=== PATIENT | female | born 1990 | race American Indian/Alaskan Native ===

== ENCOUNTER 2017-12-05 23:55 | Emergency (ER) | payer SELFPAY ==
[2017-12-06 01:22] LABS: Bilirubin,Urine NEG (Negative); Blood,Urine NEG (Negative); Color,Urine Straw (Yellow); Protein,Urine <15 mg/dL mg/dL (Negative); Urobilinogen,Urine < 2.0 mg/dL (<2.0)
[2017-12-06 01:29] LABS: HCG Qualitative,Urine Negative (Negative)
[2017-12-06 02:12] VITALS: BP 110/72
--- NOTE | 2017-12-06 02:26 | XRay Report ---
FINAL REPORT PROCEDURE: XR SPINE LUMBOSACRAL 2-3V TECHNIQUE: Lumbar spine radiographs, including AP, lateral, and lumbosacral spot views. CPT 76325 HISTORY: Lower back pain COMPARISON: No prior studies are available for comparison. FINDINGS: Alignment: Normal. Vertebral body heights/Disk spaces: Normal. Fracture(s): None. Facets: Normal. Bone mineralization: Normal. IMPRESSION: Normal Examination.
[2017-12-06] MEDS ORDERED: TORADOL IM ONE (03:26)
[2017-12-06] MEDS ORDERED: NORCO 7.5/325 PO ONE (03:30)
--- NOTE | 2017-12-06 03:30 | Emergency Department Report ---
HPI - General Chief Complaint: Back Pain/Injury Time Seen by Provider: 12/06/17 03:24 - HPI HPI: 26-year-old -[place] Citizen female comes in with complaint of lower back pain for 3 days that radiates to her legs. Patient reports that the pain has increased in intensity. Pain is on the right side. She tried ibuprofen 200 mg 2 tablets around 9 PM but did not help with her pain. She reports pain radiates down her back to her legs. She denies any recent traumas. She reports that the pain is sharp and worse with movement. She has no past medical history currently takes no meds and has no known drug allergies. ED Past Medical Hx - Past Medical History Previous Medical History?: Yes - Surgical History Past Surgical History?: Yes Additional Surgical History: D/C - Social History Smoking Status: Never Smoker - Medications Home Medications: Home Medications Medication Instructions Recorded Confirmed Last Taken Type Naproxen [Naprosyn] 500 mg PO BID #20 tablet 12/06/17 Unknown Rx methylPREDNISolone [Medrol] 4 mg PO QDAY #1 tab.ds.pk 12/06/17 Unknown Rx ED Review of Systems ROS: Stated complaint: LOWER BACK PAIN Other details as noted in HPI Constitutional: denies: chills, fever Eyes: denies: eye pain, eye discharge, vision change ENT: denies: ear pain, throat pain Respiratory: denies: cough, shortness of breath, wheezing Cardiovascular: denies: chest pain, palpitations Endocrine: no symptoms reported Gastrointestinal: denies: abdominal pain, nausea, diarrhea Genitourinary: denies: urgency, dysuria, discharge Musculoskeletal: back pain. denies: joint swelling, arthralgia Skin: denies: rash, lesions Neurological: denies: headache, weakness, paresthesias Psychiatric: denies: anxiety, depression Hematological/Lymphatic: denies: easy bleeding, easy bruising Physical Exam - Physical Exam Vital Signs: Vital Signs 12/06/17 12/06/17 00:26 01:36 Temperature 98.5 F 98.5 F Pulse Rate 90 90 Respiratory 18 18 Rate Blood Pressure 110/72 110/72 O2 Sat by Pulse 100 100 Oximetry Physical Exam: GENERAL APPEARANCE: Well developed, well nourished, in no acute distress. SKIN: Inspection of the skin reveals no rashes, ulcerations or petechiae. HEENT: The sclerae were anicteric and conjunctivae were pink and moist. Extraocular movements were intact and pupils were equal, round, and reactive to light with normal accommodation. External inspection of the ears and nose showed no scars, lesions, or masses. Lips, teeth, and gums showed normal mucosa. The oral mucosa, hard and soft palate, tongue and posterior pharynx were normal. NECK: Supple and symmetric. There was no thyroid enlargement, and no tenderness , or masses were felt. CHEST: Normal AP diameter and normal contour without any kyphoscoliosis. LUNGS: Auscultation of the lungs revealed normal breath sounds without any other adventitious sounds or rubs. CARDIOVASCULAR: There was a regular rate and rhythm without any murmurs, gallops , rubs. The carotid pulses were normal and 2+ bilaterally without bruits. Peripheral pulses were 2+ and symmetric. BACK: mild swelling on her right thoracic with tenderness to palpation. MUSCULOSKELETAL: Gait was normal. There was no tenderness or effusions noted. Muscle strength and tone were normal. EXTREMITIES: No cyanosis, clubbing or edema. NEUROLOGIC: Alert and oriented x 3. Normal affect. Gait was normal. ED Course Vital Signs 12/06/17 12/06/17 00:26 01:36 Temperature 98.5 F 98.5 F Pulse Rate 90 90 Respiratory 18 18 Rate Blood Pressure 110/72 110/72 O2 Sat by Pulse 100 100 Oximetry - Reevaluation(s) Reevaluation #1: 12/06/17 04:34 Patient reports she feels much better since having the Toradol injection. ED Medical Decision Making - Radiology Data Radiology results: report reviewed Lumbar sacral 2-3 view impression: Normal examination - Medical Decision Making Patient has been evaluated by this provider fast track. Patient has been given a Toradol injection and pain pill. Discussed the patient she needs to take ibuprofen or naproxen for sciatica pain. Discussed with patient her urine was negative. And her x-rays were negative. Critical care attestation.: If time is entered above; I have spent that time in minutes in the direct care of this critically ill patient, excluding procedure time. ED Disposition Clinical Impression: Sciatica of right side Disposition: DC-01 TO HOME OR SELFCARE Is pt being admited?: No Does the pt Need Aspirin: No Condition: Stable Instructions: Sciatica (ED), Lumbar Radiculopathy (ED) Additional Instructions: Please take medication as prescribed. Please do exercise to help with the sciatica pain. Follow-up with her primary care provider for further evaluation. Prescriptions: methylPREDNISolone [Medrol] 4 mg PO QDAY #1 tab.ds.pk Naproxen [Naprosyn] 500 mg PO BID #20 tablet Referrals: PRIMARY CARE, [Primary Care Provider] - 3-5 Days [facility] [Provider Group] - 3-5 Days Forms: Work/School Release Form(ED), Accompanied Note
== END 2017-12-06 04:42 | disposition home or self-care (01) ==
LOC: ED 23:55
DX: M54.41 Lumbago with sciatica, right side (principal); G89.29 Other chronic pain
CPT/HCPCS: 72100; 81001; 81025; 96372; 99284; J1885

== ENCOUNTER 2018-03-30 08:48 | Emergency (ER) | payer OTHER ==
[2018-03-30 08:56] VITALS: BP 137/89
[2018-03-30] MEDS ORDERED: FLEXERIL PO ONE (09:17)
[2018-03-30] MEDS ORDERED: MOTRIN PO ONE (09:17)
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
--- NOTE | 2018-03-30 10:25 | XRay Report ---
LEFT SHOULDER, 3 views: History: Neck and left shoulder pain. Routine views demonstrate normal bony and soft tissue structures with normal joint alignment of the shoulder. IMPRESSION: Left shoulder within normal limits.
--- NOTE | 2018-03-30 10:25 | XRay Report ---
CERVICAL SPINE, 3 views: History: Neck and left shoulder pain. AP and lateral views of the cervical spine were obtained. There is anatomic alignment, and the disc spaces are well maintained. There is no evidence of fracture or subluxation. There is loss of the normal cervical lordotic curve suggestive of muscle spasm. The prevertebral soft tissues are within normal limits. IMPRESSION: Loss of cervical lordosis suggesting muscle spasm vs. variation in patient positioning. Clinical correlation is advised. Otherwise negative cervical spine.
== END 2018-03-30 10:40 | disposition home or self-care (01) ==
LOC: ED 08:48
DX: S13.4XXA Sprain of ligaments of cervical spine, initial encounter (principal); S46.912A Strain of unspecified muscle, fascia and tendon at shoulder and upper arm level, left arm, initial encounter; F17.200 Nicotine dependence, unspecified, uncomplicated; V49.40XA Driver injured in collision with unspecified motor vehicles in traffic accident, initial encounter; Y93.89 Activity, other specified; Y99.8 Other external cause status; Y92.410 Unspecified street and highway as the place of occurrence of the external cause
CPT/HCPCS: 72040; 99283

== ENCOUNTER 2018-07-03 12:49 | Emergency (ER) | payer SELFPAY ==
[2018-07-03 13:01] VITALS: BP 115/71
[2018-07-03] MEDS ORDERED: BOOSTRIX IM ONE (15:09)
--- NOTE | 2018-07-03 15:09 | Emergency Department Report ---
ED Laceration HPI - HPI Chief Complaint: Wound/Laceration Stated Complaint: LEFT FOOT CUT Occurred When: Before Yesterday (2 days ago) Location: Lower Extremity (left foot) Severity: moderate Tetanus Status: Not up to Date Laceration Symptoms: Yes Pain, No Foreign Body Sensation, No Numbness, No Weakness Other History: This is a 27-year-old [place] female who presents with laceration to left foot. Patient states she stepped on her laptop edge inker uppers 2 days ago and in toward a laceration to left heel. Patient reports severe pain with weightbearing. She is currently using crutches to aid in walking. She is apply Neosporin and peroxide to wound which decrease swelling. She reports tenderness and swelling around with active drainage. Patient denies numbness or tingling, fever, weakness, paresthesias. ED Review of Systems ROS: Stated complaint: LEFT FOOT CUT Other details as noted in HPI Constitutional: denies: chills, fever Respiratory: denies: cough, shortness of breath, wheezing Cardiovascular: denies: chest pain, palpitations Gastrointestinal: denies: abdominal pain, nausea, diarrhea Skin: lesions (left foot). denies: rash Neurological: denies: headache, weakness, paresthesias Psychiatric: denies: anxiety, depression ED Past Medical Hx - Past Medical History Previous Medical History?: No Additional medical history: Vaginal dleivery x 2 - Surgical History Past Surgical History?: Yes Additional Surgical History: D/C - Social History Smoking Status: Current Every Day Smoker Substance Use Type: None - Medications Home Medications: Home Medications Medication Instructions Recorded Confirmed Last Taken Type Naproxen [Naprosyn] 500 mg PO BID #20 tablet 12/06/17 Unknown Rx methylPREDNISolone [Medrol] 4 mg PO QDAY #1 tab.ds.pk 12/06/17 Unknown Rx Cyclobenzaprine [Flexeril] 10 mg PO QHS PRN #14 tablet 03/30/18 Unknown Rx Ibuprofen [Motrin] 600 mg PO Q8H PRN #30 tablet 03/30/18 Unknown Rx Ibuprofen [Motrin 800 MG tab] 800 mg PO Q8HR PRN #12 tablet 07/03/18 Unknown Rx Sulfamethoxazole/Trimethoprim 1 each PO BID #14 tablet 07/03/18 Unknown Rx [Bactrim DS TAB] Laceration Physical Exam - Exam General: Vital signs noted. No distress. Alert and acting appropriately. Wound Length (cm): 1 (0.5 cm) Laceration Location: Lower Extremity (0.5 cm erythematous, superficial laceration with flap to left dorsum foot, non-fluctant, tenderness, active drainage, round and cellulitis) Laceration Exam: Yes Normal Distal CMS, No Foreign Body, No Exposed Tendon, Vessel, or Nerve, No Tendon Injury ED Course Vital Signs 07/03/18 12:57 Temperature 98.7 F Pulse Rate 94 H Respiratory 16 Rate Blood Pressure 115/71 O2 Sat by Pulse 99 Oximetry ED Medical Decision Making - Medical Decision Making This is a 27 y.o. female presents with laceration to left dorsum foot x 2 days. Patient examined by me. Patient is non-toxic appearing and stable. Physical examination is susceptible of cellulites of left dorsal foot. Patient given tetanus vaccine while in the emergency room. Discharged home for outpatient treatment with bactrim and ibuprofen. Discussed ER care plan with patient. Patient agreed with plan. F/U with PCP. Critical care attestation.: If time is entered above; I have spent that time in minutes in the direct care of this critically ill patient, excluding procedure time. ED Disposition Clinical Impression: Abscess or cellulitis of foot Laceration of dorsum of foot Qualifiers: Encounter type: initial encounter Laterality: left Qualified Code(s): S91.312A - Laceration without foreign body, left foot, initial encounter Disposition: - TO HOME OR SELFCARE Is pt being admited?: No Does the pt Need Aspirin: No Condition: Stable Instructions: Laceration (ED), Cellulitis (ED) Additional Instructions: Take antibiotics as prescribed for the full course. Keep wound dry and clean for 48 hours. Avoid putting to much tension on wound site. Prop arm up on pillows to decrease swelling. Follow up with Primary Care Provider in 2-3 days. Return to ER if red, swollen, foul discharge, or fever. Prescriptions: Ibuprofen [Motrin 800 MG tab] 800 mg PO Q8HR PRN #12 tablet PRN Reason: Pain , Severe (7-10) Sulfamethoxazole/Trimethoprim [Bactrim DS TAB] 1 each PO BID #14 tablet Referrals: [facility] [Outside] - 3-5 Days [facility] [Outside] - 3-5 Days [facility] [Outside] - 3-5 Days Forms: Work/School Release Form(ED) Time of Disposition: 15:15 Print Language: CITIZEN OF [place]
== END 2018-07-03 15:50 | disposition home or self-care (01) ==
LOC: ED 12:49
DX: S91.312A Laceration without foreign body, left foot, initial encounter (principal); F17.200 Nicotine dependence, unspecified, uncomplicated; L02.612 Cutaneous abscess of left foot; W26.8XXA Contact with other sharp object(s), not elsewhere classified, initial encounter; Y93.89 Activity, other specified; Y92.89 Other specified places as the place of occurrence of the external cause; Y99.8 Other external cause status
CPT/HCPCS: 90471; 90715; 99282